=== PATIENT | male | born 1975 ===

== ENCOUNTER 2023-08-25 15:47 | Emergency (ER) | payer MEDICAID, SELFPAY ==
--- NOTE | 2023-08-25 15:56 | ED_ITS ---
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 Both areas have been present for about 1 week He reports minimal drainage from both areas as well. Denies any fevers or chills. He states that his tried to squeeze the 1 to his left lower abdomen yesterday and ?very little drainage came out but it is more red and more painful since then. ? Patient denies any allergies, he denies any history of diabetes Related Data Previous Rx's Medication Instructions Recorded cephalexin 500 mg tablet 500 mg PO QID #28 tabs 08/25/23 doxycycline hyclate 100 mg tablet 100 mg PO BID #14 tabs 08/25/23 mupirocin 2 % topical ointment 1 appl topical TID 1 week #15 grams 08/25/23 Allergies Allergy/AdvReac Type Severity Reaction Status Date / Time No Known Allergies Allergy Verified 08/25/23 15:56 Review of Systems 2 Constitutional: Constitutional: Denies body ache(s), Denies chills and Denies fever(s) Eyes: Eyes: Denies blurry vision Cardiovascular: Cardiovascular: Denies chest pain and Denies dyspnea Respiratory: Respiratory: Denies cough and Denies dyspnea Gastrointestinal: Gastrointestinal: Denies abdominal pain, Denies nausea and Denies vomiting Integumentary/Breasts: Skin/Breast: Reports erythema, Reports skin pain, Reports skin swelling and Reports wounds PMFSH Social History Social History Advance Directives: No Advance Directives Information Provided: No Physical Exam ED Vital Signs: Vital Signs - 24 hr 08/25/23 15:57 08/25/23 18:25 08/25/23 19:46 Temperature 96.9 F 96.9 F Pulse Rate 81 62 82 Respiratory Rate 18 16 18 Blood Pressure 141/72 H 131/77 131/77 Pulse Oximetry 97 97 Oxygen Delivery Method Room Air Room Air BMI result Body Mass Index 24.0 Const General: healthy appearing, comfortable, no acute distress, alert and awake Nutritional Appearance: well nourished Orientation/consciousness: patient oriented x3 HENMT Head: Yes normocephalic and Yes atraumatic Eyes Eyelids: Yes eyelids normal Conjunctivae: conjunctivae normal Sclerae: sclerae normal Corneas: corneas normal Pupils: Equal, round and reactive pupils present EOM: EOMs intact bilaterally Neck Neck: Yes full ROM Resp Effort & Inspection: normal respiratory effort, able to speak in complete sentences and not labored GI Inspection: No distended Palpation (GI): Soft to palpation, not firm, nontender, no guarding and not rigid Skin Other: Patient has a 3 cm area of erythema with induration to the left lower abdomen. There is about a 1 cm central opening with minimal purulent drainage. No fluctuance noted Patient has about a 1 cm area of erythema with induration to the right cheek. There was a small scabbed over area but no opening or purulent drainage General skin exam: elasticity normal Neuro General: patient oriented x3 Cranial nerves: Yes Equal, round and reactive pupils present and Yes Bilaterally intact EOM present Cognition (Neuro): normal cognition Extrem Other: Moving all extremities well without any obvious deformities Course Course Course Narrative: RME:?48 yo male here for eval of abdominal infection x2 days. reports Acne on his stomach that has been worsening. the area as been hard and draining liquid. denies fever, chills. denies ivdu. [id number] area of erythema noted to the LLQ. no active drainage. ttp. warm. central induration. no palpable fluctuance. labs ordered +/- imaging per provider Full HPI, ROS and PE to be performed by the primary ED provider. Medications Administered Discontinued Medications Generic Name Dose Route Start Last Admin Trade Name Davidq PRN Reason Stop Dose Admin Cephalexin HCl 500 mg 08/25/23 19:29 08/25/23 19:41 Cephalexin 500 Mg Capsule PO 08/25/23 19:30 500 mg ONCE ONE Administration Doxycycline Monohydrate 100 mg 08/25/23 19:29 08/25/23 19:41 Doxycycline Monohydrate 100 Mg Capsule PO 08/25/23 19:30 100 mg ONCE ONE Administration Lidocaine/Epinephrine 10 ml 08/25/23 18:47 08/25/23 19:42 Lidocaine Hcl 1%/Epi 1:100,000 30 Ml Vial INFILTRATI 08/25/23 18:48 10 ml ONCE ONE Administration Procedures Procedure Narrative Procedure Narrative: The left lower abdominal wall was locally anesthetized with 4 cc of 1% lidocaine. I used a scalpel to make a small, 1 cm incision in the center of the area of erythema with induration. Some blood was expressed but no significant purulence. I probed around with forceps inside the wound to attempted disrupt any loculations but none were found. Patient tolerated the procedure well, there were no complications Abscess I/D Site: face (Right cheek) Side (if applicable): right Local Anesthetic: lidocaine 1% Amount of anesthesia used (mL): 3 Technique: needle aspiration Amount of fluid expressed (mL): 2 Sent for culture/gram staining?: No Irrigation: No Packing used?: none Medical Decision Making Medical Decision Making [facility] Narrative: The patient appears to have 2 small abscesses/infected cysts, 1 to the face and 1 to left lower abdomen. Will attempt needle aspiration to the right side of the face and I and D to the left lower abdomen. See procedure note. His vitals are stable, he has no leukocytosis, there is no evidence of sepsis Differential Diagnosis Differential Diagnoses: The differential diagnosis associated with the presentation includes Abscess Sebaceous cyst Dermatitis Ingrown hair Lab Data [facility] Lab Attestation statement: I reviewed the patient's lab results. No leukocytosis or left shift. No significant anemia. No electrolyte abnormalities 08/25/23 16:31 08/25/23 16:31 Labs: Lab Results 08/25/23 Range/Units 16:31 WBC 8.0 (4.8-10.8) X10*3/uL RBC 4.78 (4.60-5.80) X10*6/uL Hgb 14.6 (14.0-18.0) g/dl Hct 40.5 L (42.0-52.0) % MCV 84.7 (80.0-98.0) fL MCH 30.5 (27.0-33.0) pg MCHC 36.0 (31.0-36.0) g/dl RDW 12.0 (11.0-16.0) % Plt Count 247 (160-400) X10*3/uL MPV 9.5 (9.4-12.4) fL Immature Gran % (Auto) 0.4 (0.0-0.4) % Neut % (Auto) 63.1 (45-73) % Lymph % (Auto) 25.6 (20-40) % Towner % (Auto) 8.5 (2-11) % Eos % (Auto) 2.1 (0-4) % Baso % (Auto) 0.3 (0-2) % Lymph # (Auto) 2.0 (1.2-4.9) X10*3/uL Towner # (Auto) 0.7 (0.1-1.2) X10*3/uL Eos # (Auto) 0.2 (0.0-0.4) X10*3/uL Baso # (Auto) 0.0 (0.0-0.2) X10*3/uL Abs Immat Gran (auto) 0.03 (0.00-0.03) X10*3/uL Absolute Neuts (auto) 5.0 (2.0-8.3) x10*3/uL Absolute Nucleated RBC 0.000 (0.0-0.012) X10*3/uL Nucleated RBC % (auto) 0.0 (0.0-0.2) /100WBC Sodium 139 (135-145) mmol/L Potassium 4.1 (3.3-5.1) mmol/L Chloride 105 (96-108) mmol/L Carbon Dioxide 27 (22-29) mmol/L Anion Gap 11 L (12-20) BUN 13 (9-16) mg/dL Creatinine 0.99 (0.5-1.4) mg/dL Estim Creat Clear Calc 92.1 Estimated GFR > 60 Random Glucose 101 (60-115) mg/dL Calcium 10.0 (8.4-10.2) mg/dL Total Bilirubin 0.6 (0.0-1.0) mg/dL AST 19 (5-37) U/L ALT 28 (0-40) U/L Alkaline Phosphatase 37 L (39-117) U/L Total Protein 8.1 H (6.5-8.0) g/dL Albumin 4.8 (3.5-5.0) g/dL Discharge Plan Discharge Clinical Impression: Abscess of skin or subcutaneous tissue Patient Disposition: Home, Self-Care Instructions: Abscess (ED) Additional Instructions: Keep the area clean and dry. Apply warm compresses to the affected areas once every 4 hours Take both antibiotics as prescribed Follow-up with your primary doctor Return for new or worsening symptoms Prescriptions: New cephalexin 500 mg tablet 500 mg PO QID Qty: 28 0RF doxycycline hyclate 100 mg tablet 100 mg PO BID Qty: 14 0RF mupirocin 2 % ointment 1 appl topical TID 7 Days Qty: 15 0RF Interventions: ED Discharge Assessment Last Done: 08/25/23 19:46 Discharge Date/Time: 08/25/23 19:47
[2023-08-25 15:57] VITALS: BP 141/72; PULSE 81; RESP 18; TEMP 36.1; O2SAT 97; BMI 24.0
[2023-08-25 16:36] LABS: MANUAL DIFF FLAG NO
[2023-08-25 16:37] LABS: Basophils Percent Auto 0.3 % (0-2); Eosinophils Absolute Auto 0.2 X10*3/uL (0.0-0.4); Eosinophils Percent Auto 2.1 % (0-4); Hematocrit 40.5 % (42.0-52.0); Hemoglobin 14.6 g/dl (14.0-18.0); Imm Gran Abs Auto 0.03 X10*3/uL (0.00-0.03); Imm Gran Pct Auto 0.4 % (0.0-0.4); Lymphocytes Percent Auto 25.6 % (20-40); Mean Corpuscular Hemoglobin 30.5 pg (27.0-33.0); Mean Corpuscular Volume 84.7 fL (80.0-98.0); Mean Platelet Volume 9.5 fL (9.4-12.4); Monocytes Absolute Auto 0.7 X10*3/uL (0.1-1.2); Monocytes Percent Auto 8.5 % (2-11); Neutrophils Percent Auto 63.1 % (45-73); Platelet Count 247 X10*3/uL (160-400); Red Blood Count 4.78 X10*6/uL (4.60-5.80)
[2023-08-25 16:57] LABS: Alanine Aminotransferase 28 U/L (0-40); Albumin Level 4.8 g/dL (3.5-5.0); Alkaline Phosphatase 37 U/L (39-117); Anion Gap 11 (12-20); Aspartate Amino Transferase 19 U/L (5-37); Bilirubin Total 0.6 mg/dL (0.0-1.0); Blood Urea Nitrogen 13 mg/dL (9-16); Carbon Dioxide 27 mmol/L (22-29); Chloride 105 mmol/L (96-108); Creatinine Clr Calc Pharmacy 92.1; Estimated Glomerular Filt Rate > 60; Glucose Random 101 mg/dL (60-115); Potassium 4.1 mmol/L (3.3-5.1); Sodium 139 mmol/L (135-145); Total Protein 8.1 g/dL (6.5-8.0)
[2023-08-25 18:25] VITALS: BP 131/77; PULSE 62; RESP 16; O2SAT 97
[2023-08-25] MEDS: cephALEXin 500 MG CAPSULE PO (19:41)
[2023-08-25] MEDS: Doxycycline Monohydrate 100 MG CAPSULE PO (19:41)
[2023-08-25 19:46] VITALS: BP 131/77; PULSE 82; RESP 18; TEMP 36.1
== END 2023-08-25 19:47 | disposition home or self-care (01) ==
PROVIDERS: Physician Assistant Medical; Emergency Provider Emergency Medicine
DX: L02.211 Cutaneous abscess of abdominal wall (principal); L02.01 Cutaneous abscess of face
CPT/HCPCS: 10060; 10160; 36415; 80053; 85025; 99284

== ENCOUNTER 2023-09-09 20:21 | Emergency (ER) | payer MEDICAID, SELFPAY ==
--- NOTE | ~2023-09-09 | XR_ITS ---
EXAMINATION: XR CHEST CLINICAL INFORMATION: Cough. COMPARISON: None available. TECHNIQUE: 2 views of the chest were obtained. FINDINGS: No significant abnormality is noted involving the heart, lungs, mediastinum, bony thorax or soft tissues. XR/XR chest 2V IMPRESSION: Unremarkable examination.
[2023-09-09 21:02] VITALS: BP 134/55; PULSE 83; RESP 16; TEMP 37.3; O2SAT 97; BMI 26.8
--- OUTSIDE RECORDS SUMMARY | 2023-09-09 21:35 | XMS_ITS | Continuity of Care Document ---
Author Organization [facility] Address [address] [place] [id number]- Care Team Providers Care Business [employer] Dean Name Role Phone Dio Rosa MD Primary Care Physician Encounter [facility] Date(s): 01/03/23 - 02/02/23 [facility] [address] [place] [id number] Patient Care team information Care Team Personnel Name: Dio Rosa MD Position: [facility] Outreach Member Role: PCP Address: Address: [address] [place] [id number]
--- OUTSIDE RECORDS SUMMARY | 2023-09-09 21:35 | XMS_ITS | Continuity of Care Document ---
Author Organization [facility] Address [address] [place] [id number]- Care Team Providers Care Molder Floor Name Role Phone Dio Rosa MD Primary Care Physician Encounter [facility] Date(s): 07/30/22 - 08/29/22 [facility] [address] [place] [phone]- us Patient Care team information Care Team Personnel Name: Dio Rosa MD Position: [facility] Outreach Member Role: PCP Address: Address: [address] [place] [id number]
--- OUTSIDE RECORDS SUMMARY | 2023-09-09 21:35 | XMS_ITS | Continuity of Care Document ---
Author Organization [facility] Address [address] [place] [id number]- Care Team Providers Care Blind Installer Name Role Phone Dio Rosa MD Primary Care Physician Encounter [facility] Date(s): 07/17/22 - 08/16/22 [facility] [address] [id number]- Attending Physician: Dominic Akins8 Admitting Physician: Admtr Ar8 Referring Physician: Admtr, Ar8 Patient Care team information Care Team Personnel Name: Dio Rosa MD Position: [facility] Outreach Member Role: PCP Address: Address: [address] [place] [id number]
--- OUTSIDE RECORDS SUMMARY | 2023-09-09 21:35 | XMS_ITS | Continuity of Care Document ---
Author Organization [facility] Address [address] [place] [id number]- Care Team Providers Care Blanket Weaver Name Role Phone Dio Rosa MD Primary Care Physician Encounter [facility] Date(s): 07/18/23 - 08/30/[address] [id number] Attending Physician: Jorge Rodriguez Admitting Physician: Jorge Rodriguez Referring Physician: Jorge Rodriguez Allergies, Adverse Reactions, Alerts No Known Allergies Medications Gas Relief Extra Strength = 125 mg, By Mouth, 3 times a day after meals and bedtime, OTC, 0 Refills, Maintenance, 07/15/23 10:54:00 EST, Partial fill upon patient request if the prescription is for a schedule II opioid drug. Start Date: 07/15/23 Status: Ordered NuLYTELY Lemon [place] oral powder for reconstitution See Instructions, as directed by GI office, # 4,000 mL, 0 Refills, Maintenance, 07/22/23 14:05:00 EST, REC Powder, [facility]/pharmacy #[id number], ok to sub for any gallon prep, 168, cm, 07/15/23 10:45:00 EST, Height Start Date: 07/22/23 Status: Ordered omeprazole 40 mg oral enteric coated capsule 1 capsule = 40 mg, By Mouth, Daily, 0 Refills, Maintenance, 07/15/23 10:54:00 EST, Partial fill upon patient request if the prescription is for a schedule II opioid drug. Start Date: 07/15/23 Status: Ordered Social History Social History Type Response Smoking Status Never (less than 100 in lifetime) entered on: 07/15/23 Sex Patient Care team information Care Team Personnel Name: Dio Rosa MD Position: [facility] Outreach Member Role: PCP Address: Address: [address] [place] [address]-
--- OUTSIDE RECORDS SUMMARY | 2023-09-09 21:35 | XMS_ITS | Continuity of Care Document ---
Author Organization [facility] Address [address] [place] [id number]- Care Team Providers Care Hydrogen Cell Tender Name Role Phone Dio Rosa MD Primary Care Physician [phone] [place] [facility] Date(s): 07/15/23 - 08/14/23 [facility] [address] [place] [id number]- Attending Physician: Yuan Akins Admitting Physician: Yuan Akins Referring Physician: Yuan Akins Allergies, Adverse Reactions, Alerts No Known Allergies Medications Gas Relief Extra Strength = 125 mg, By Mouth, 3 times a day after meals and bedtime, OTC, 0 Refills, Maintenance, 07/15/23 10:54:00 EST, Partial fill upon patient request if the prescription is for a schedule II opioid drug. Start Date: 07/15/23 Status: Ordered NuLYTELY Lemon [place] oral powder for reconstitution See Instructions, as directed by GI office, # 4,000 mL, 0 Refills, Maintenance, 07/22/23 14:05:00 EST, REC Powder, [facility]pharmacy #[id number], ok to sub for any gallon [...] Team Personnel Name: Dio Rosa MD Position: [facility] Outreach Member Role: PCP Address: Address: [address] [place] [id number]-
[2023-09-09 22:46] LABS: IDNOW Serial# 152EDE1D; Influenza A Positive (Negative); Influenza B2 Negative (Negative)
[2023-09-09 22:47] LABS: COVID-19 Test Negative (Negative); IDNOW Serial# 08D9AD1C
[2023-09-10 01:00] VITALS: BP 135/82; PULSE 81; RESP 16; TEMP 37.6; O2SAT 94
--- NOTE | 2023-09-10 01:32 | ED_ITS ---
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 Denies any chest pain or vomiting No other complaints or concerns at this time Related Data Previous Rx's ?Medication ?Instructions ?Recorded cephalexin 500 mg tablet 500 mg PO QID #28 tabs 08/25/23 doxycycline hyclate 100 mg tablet 100 mg PO BID #14 tabs 08/25/23 mupirocin 2 % topical ointment 1 appl topical TID 1 week #15 grams 08/25/23 ondansetron 4 mg disintegrating 4 mg PO Q8H PRN nausea and 09/10/23 tablet vomiting #20 tabs oseltamivir 75 mg capsule (Tamiflu) 75 mg PO BID 5 days #10 caps 09/10/23 Allergies Allergy/AdvReac Type Severity Reaction Status Date / Time No Known Allergies Allergy Verified 09/09/23 21:04 Review of Systems 2 Constitutional: Constitutional: Reports body ache(s), Reports chills, Denies fever(s), Reports headache(s) and Reports malaise ENT: Reports headache(s) and Denies sore throat Cardiovascular: Cardiovascular: Denies chest pain and Denies dyspnea Respiratory: Respiratory: Reports cough and Denies dyspnea Gastrointestinal: Gastrointestinal: Denies abdominal pain, Denies nausea and Denies vomiting Genitourinary: Genitourinary: Denies dysuria Musculoskeletal: Musculoskeletal: Reports back pain Integumentary/Breasts: Skin/Breast: Denies rash Neurologic: Reports headache(s) [facility] Social History Social History Advance Directives: No Advance Directives Information Provided: No Physical Exam ED Vital Signs: Vital Signs - 24 hr 09/09/23 21:02 Temperature 99.1 F Pulse Rate 83 Respiratory Rate 16 Blood Pressure 134/55 L Pulse Oximetry 97 Oxygen Delivery Method Room Air BMI result Body Mass Index 26.8 Const General: healthy appearing, comfortable, no acute distress, alert and awake Nutritional Appearance: well nourished Orientation/consciousness: patient oriented x3 HENMT Head: Yes normocephalic and Yes atraumatic Throat: Yes posterior oropharynx normal Eyes Eyelids: Yes eyelids normal Conjunctivae: conjunctivae normal Sclerae: sclerae normal Corneas: corneas normal Pupils: Equal, round and reactive pupils present EOM: EOMs intact bilaterally Neck Neck: Yes full ROM Resp Effort & Inspection: normal respiratory effort, able to speak in complete sentences, no audible wheezes and not labored Auscultation: clear to auscultation bilaterally Cardio Rate: regular rate Rhythm: regular rhythm GI Inspection: No distended Palpation (GI): Soft to palpation, not firm, nontender, no guarding and not rigid Skin General skin exam: elasticity normal Neuro General: patient oriented x3 Cranial nerves: Yes Equal, round and reactive pupils present and Yes Bilaterally intact EOM present Cognition (Neuro): normal cognition Extrem Other: Moving all extremities well without any obvious deformities Medical Decision Making Medical Decision Making MDM Narrative: This is a healthy 48-year-old male presenting for evaluation of flu-like symptoms. He did not fact test positive for influenza A. His vital signs are currently stable. He has not hypoxic. He had a chest x-ray that shows no evidence of pneumonia, pleural effusions or pneumothorax. He was within the window for Tamiflu treatment. We will treat with Tamiflu and a dose of Toradol prior to discharge. The patient is stable for discharge at this time Differential Diagnosis Differential Diagnoses: The differential diagnosis associated with the presentation includes Influenza COVID-19 Pneumonia Bronchitis Upper respiratory infection Lab Data [facility] Lab Attestation statement: I reviewed the patient's lab results. (Positive for influenza A) Labs: Lab Results 09/09/23 Range/Units 21:56 COVID-19 (DIMPLE) Negative (Negative) COVID-19 Clin Com See Note Influenza Type A (ERWIN) Positive A (Negative) Influenza Type B (ERWIN) Negative (Negative) Influenza A & B Note See Note Independent Interpretation I performed an independent interpretation of an: Plain X-Ray (No focal infiltrate or effusion) Radiology Impression Discussion of test interpretation with radiology: I have reviewed the radiologist's reading. Radiologist Impression: Unremarkable examination Discharge Plan Discharge Clinical Impression: Influenza Patient Disposition: Home, Self-Care Instructions: Influenza (ED) Additional Instructions: You tested positive for influenza A. Use ibuprofen/Tylenol as needed for pain Drink lots of fluids Take Tamiflu twice daily for the next 5 days You may use Zofran as needed for any nausea or vomiting Follow-up with your primary doctor Prescriptions: New ondansetron 4 mg tablet,disintegrating 4 mg PO Q8H PRN (Reason: nausea and vomiting) Qty: 20 0RF oseltamivir [Tamiflu] 75 mg capsule 75 mg PO BID 5 Days Qty: 10 0RF No Action cephalexin 500 mg tablet 500 mg PO QID Qty: 28 0RF doxycycline hyclate 100 mg tablet 100 mg PO BID Qty: 14 0RF mupirocin 2 % ointment 1 appl topical TID 7 Days Qty: 15 0RF Print Language: Bengali
[2023-09-10] MEDS: Oseltamivir Phosphate 75 MG CAPSULE PO (02:09)
[2023-09-10] MEDS: Ketorolac Tromethamine 30 MG/ML VIAL IM (02:09)
== END 2023-09-10 01:00 | disposition home or self-care (01) ==
PROVIDERS: Emergency Provider Emergency Medicine
DX: J10.1 Influenza due to other identified influenza virus with other respiratory manifestations (principal); Z11.52 Encounter for screening for COVID-19
CPT/HCPCS: 71046; 87502; 87635; 96372; 99283; 99284; J1885